=== PATIENT | female | born 1995 | race Two or more races ===

== ENCOUNTER 2022-05-05 17:21 | Emergency (ER) | payer MEDICAID, OTHER ==
[~2022-05-05] VITALS: Ht 165.1 cm; Wt 91.9 kg
[~2022-05-05 17:21] MED LIST: PREN-96 PO
[2022-05-05] MEDS ORDERED: ONDANSETRON ODT 4 MG TAB PO ONE (18:00)
[2022-05-05 18:55] LABS: Basophils # (auto) 0 10 ^3/uL (0-0.2); Basophils % (auto) 0.4 % (0.0-2.0); Eosinophils # (auto) 0.1 10 ^3/uL (0-0.8); Eosinophils % (auto) 0.8 % (0.0-7.0); Hematocrit 40.7 % (36.0-46.0); Hemoglobin 14.3 g/dL (12.2-16.2); Lymphocytes # (auto) 1.3 10 ^3/uL (0.4-5.4); Lymphocytes % (auto) 11.1 % (10.0-50.0); Mean Corpuscular Hemoglobin 30.3 pg (28.0-32.0); Mean Corpuscular Hgb Conc. 35.1 g/dL (32.0-36.0); Mean Corpuscular Volume 86.2 fL (80.0-100.0); Monocytes # (auto) 0.4 10 ^3/uL (0-1.3); Monocytes % (auto) 3.6 % (0.0-12.0); Neutrophils % (auto) 84.1 % (37.0-80.0); Nucleated Red Blood Cells % 0.5 %; Red Blood Cells 4.72 10^6/uL (4.0-5.20); Red Cell Distribution Width 12.5 % (11.8-14.3); White Blood Cell 11.8 10^3/uL (4.4-10.8)
[2022-05-05 19:01] LABS: Albumin 3.7 g/dL (3.4-5.0); BUN/Creatinine Ratio 12.3; Calcium 8.9 mg/dL (8.5-10.1); Potassium 4.1 mmol/L (3.5-5.1)
[2022-05-05 19:04] LABS: Bilirubin, Total 0.5 mg/dL (0.2-1.0)
[2022-05-05] MEDS ORDERED: AZITTAB PO (21:10)
[2022-05-05] MEDS ORDERED: MONT-8 PO (21:10)
[2022-05-05] MEDS ORDERED: ONDA-144 PO (21:10)
[2022-05-05] MEDS ORDERED: MECL1TAB42 PO (21:10)
[2022-05-05 22:24] VITALS: BP 125/62
== END 2022-05-05 22:24 | disposition home or self-care (01) ==
LOC: ER 17:21
DX: H81.13 Benign paroxysmal vertigo, bilateral (principal); J32.9 Chronic sinusitis, unspecified
CPT/HCPCS: 36415; 70450; 71045; 80053; 82962; 84484; 85025; 93005; 99285; Q0162